=== PATIENT | male | born 1980 | race African-American/Black ===

== ENCOUNTER 2017-08-31 15:43 | Emergency (ER) | payer OTHER ==
--- NOTE | 2017-08-31 17:09 | RAD ---
CHEST TWO VIEW 08/31/17 HISTORY: Cough. COMPARISON: Chest two view 10/18/08. FINDINGS: The lungs are clear. No pneumothorax or effusion. The cardiac silhouette and mediastinal contours wit hin normal limits. IMPRESSION: No acute intrathoracic abnormality. POS: [facility]
--- NOTE | 2017-08-31 17:16 | RAD ---
THREE VIEWS RIGHT HAND 08/31/17 HISTORY: Trauma. AP, lateral and oblique views right hand is obtained. Comparison made to previous exam from 02/05/08. Images demonstrate interval boxer's fracture in the fifth digit right hand which is old and has under gone healing. This has occurred since the previous comparison radiograph from 2007. No acute right hand abnormalities are lesions seen. IMPRESSION: Interval healed boxer's fracture fifth digit right hand. No evidence of acute fracture seen. POS: [facility] FERNANDO
== END 2017-08-31 17:05 | disposition home or self-care (01) ==
LOC: ERS 15:43
DX: S60.221A Contusion of right hand, initial encounter (principal); J06.9 Acute upper respiratory infection, unspecified; F31.9 Bipolar disorder, unspecified; F20.9 Schizophrenia, unspecified; Z79.899 Other long term (current) drug therapy; W23.0XXA Caught, crushed, jammed, or pinched between moving objects, initial encounter
CPT/HCPCS: 71020

== ENCOUNTER 2018-01-06 17:21 | Emergency (ER) | payer OTHER ==
[2018-01-06] MEDS ORDERED: Ketorolac Tromethamine 30 MG/ML VIAL ONE (18:41)
--- NOTE | 2018-02-04 14:58 | EKG ---
Test Reason : Blood Pressure : / mmHG Vent. Rate : 053 BPM Atrial Rate : 053 BPM P-R Int : 142 ms QRS Dur : 076 ms QT Int : 422 ms P-R-T Axes : 046 052 016 degrees QTc Int : 395 ms Sinus bradycardia Septal infarct , age undetermined Abnormal ECG Reconfirmed by TRESA SARABIA ([id number]), editor news NICOLA GRANT ([id number]) on 02/04/2018 2:57:54 PM Referred By: Confirmed By:TRESA SARABIA
== END 2018-01-06 19:08 | disposition home or self-care (01) ==
LOC: ERS 17:21
DX: M54.2 Cervicalgia (principal); F31.9 Bipolar disorder, unspecified; F20.9 Schizophrenia, unspecified; V89.2XXA Person injured in unspecified motor-vehicle accident, traffic, initial encounter
CPT/HCPCS: 93005; 96374; J1885

== ENCOUNTER 2018-05-06 17:27 | Emergency (ER) | payer OTHER | END 2018-05-06 18:43 | disposition left against medical advice (07) | LOC: ERS 17:27 | DX: Z53.21 Procedure and treatment not carried out due to patient leaving prior to being seen by health care provider (principal) ==

== ENCOUNTER 2018-08-13 10:14 | Emergency (ER) | payer OTHER | END 2018-08-13 10:46 | disposition home or self-care (01) | LOC: ERS 10:14 | DX: J06.9 Acute upper respiratory infection, unspecified (principal) | CPT/HCPCS: 99283 ==